=== PATIENT | female | born 1935 | race Caucasian/White ===

== ENCOUNTER 2016-06-06 21:04 | Emergency (ER) | payer MEDICARE, SELFPAY | END 2016-06-06 23:50 | disposition home or self-care (01) | LOC: ER 21:04 | DX: R00.2 Palpitations (principal); R07.89 Other chest pain; I10 Essential (primary) hypertension; E11.9 Type 2 diabetes mellitus without complications; Z79.899 Other long term (current) drug therapy; Z79.82 Long term (current) use of aspirin; Z79.84 Long term (current) use of oral hypoglycemic drugs ==

== ENCOUNTER 2016-06-30 20:34 | Emergency (ER) | payer MEDICARE, SELFPAY ==
[2016-06-30 21:12] LABS: BASO % 0.3 % (0.1-1.2); EOS # 0.6 10_X3_uL (0.0-0.4); EOS % 6.4 % (0.7-5.8); GRAN # 4.7 10_X3_uL (1.6-6.1); GRAN % 53.4 % (34.0-71.1); HEMATOCRIT 39.7 % (34-45); HEMOGLOBIN 13.3 g/dL (11.2-15.7); LYMPH # 2.9 10_X3_uL (1.2-3.7); LYMPH % 32.6 % (19.3-51.7); MEAN CORPUSCULAR HEMOGLOBIN 31.9 pg (27.0-33.0); MEAN CORPUSCULAR HGB CONC 33.5 g/dL (32.0-36.0); MEAN CORPUSCULAR VOLUME 95.2 fL (79-95); MEAN PLATELET VOLUME 11.6 fl (7.5-11.5); MONO # 0.6 10_X3_uL (0.2-0.9); MONO % 7.3 % (4.7-12.5); PLATELET COUNT 121 x10_3/uL (182-369); RED BLOOD COUNT 4.17 x10_6/uL (3.9-5.2); RED CELL DISTRIBUTION WIDTH 12.8 % (11.7-14.4); WHITE BLOOD COUNT 8.8 x10_3/uL (4.0-10.0)
[2016-06-30 21:28] LABS: ALBUMIN 4.1 gm/dL (3.4-5.0); BILIRUBIN,TOTAL 0.38 mg/dL (0.0-1.0); CALCIUM 9.1 mg/dL (8.7-10.7); POTASSIUM 3.8 mmol/L (3.5-5.1); TOTAL PROTEIN 6.9 gm/dL (6.4-8.2)
== END 2016-06-30 21:50 | disposition home or self-care (01) ==
LOC: ER 20:34
PROVIDERS: Internal Medicine
DX: E16.2 Hypoglycemia, unspecified (principal); E11.9 Type 2 diabetes mellitus without complications; E03.9 Hypothyroidism, unspecified; Z79.4 Long term (current) use of insulin; Z79.82 Long term (current) use of aspirin
CPT/HCPCS: 36415; 80053; 82550; 82553; 82962; 85025; 93005; 99284; 99284-25